=== PATIENT | male | born 1950 | race Caucasian/White ===

== ENCOUNTER 2017-09-20 08:28 | Emergency (ER) | payer MEDICAID ==
[2017-09-20] MEDS: KETOROLAC 30 MG INJ IM (09:10)
[2017-09-20] MEDS: ALBUTEROL 0.083% (NEB) 2.5 MG/3 ML AMP NEB (09:26)
[2017-09-20] MEDS: IPRATROPIUM (NEB) 0.5 MG/2.5 ML AMP NEB (09:26)
== END 2017-09-20 10:37 | disposition home or self-care (01) ==
LOC: FTE 08:28
DX: R50.9 Fever, unspecified (principal); R05 Cough
CPT/HCPCS: 71045; 87400; 94664; 96372; 99284-25

== ENCOUNTER 2018-11-07 11:20 | Emergency (ER) | payer SELFPAY, MEDICAID ==
[2018-11-07] MEDS: HYDROCODONE/APAP (5/325) TAB PO (13:56)
[2018-11-07] MEDS: KETOROLAC 30 MG INJ IM (13:57)
== END 2018-11-07 15:59 | disposition home or self-care (01) ==
LOC: FTE 11:20
DX: M54.5 Low back pain (principal)
CPT/HCPCS: 72100; 96372; 99284-25